=== PATIENT | male | born 1980 | race American Indian/Alaskan Native ===

== ENCOUNTER 2018-07-26 17:10 | Emergency (ER) | payer OTHER ==
[2018-07-26 17:24] VITALS: BP 110/73; PULSE 85; RESP 18; TEMP 98.8; O2SAT 98
[2018-07-26] MEDS ORDERED: Lidocaine 1% Inj (20ml) INFIL STA (17:48)
[2018-07-26] MEDS ORDERED: Bacitracin 500 Units/gm Oint Foilpak UD TOP STA (17:48)
--- NOTE | 2018-07-26 17:51 | C.PDOC ---
History Of Present Illness 38 year old male presents to the ED for an evaluation of earring stuck to left ear lobe. Denies any sign of infection, fever, chills or any other symptoms. Time Seen by Provider: 07/26/18 17:46 Chief Complaint (Nursing): ENT Problem History Per: Patient History/Exam Limitations: no limitations Onset/Duration Of Symptoms: Days Current Symptoms Are (Timing): Still Present Location Of Injury: Left: Face (earring embedded in left ear lobe) Quality Of Symptoms: Painful Past Medical History Reviewed: Historical Data, Nursing Documentation, Vital Signs Vital Signs: Last Vital Signs Temp 98.8 F 07/26/18 17:21 Pulse 85 07/26/18 17:21 Resp 18 07/26/18 17:21 BP 110/73 07/26/18 17:21 Pulse Ox 98 07/26/18 17:21 - Medical History PMH: No Chronic Diseases Surgical History: No Surg Hx - [facility] Procedures OTHER SKIN & SUBQ I D (02/28/14) Family History: States: No Known Family Hx - Social History Hx Tobacco Use: No Hx Alcohol Use: No Hx Substance Use: No - Immunization History Hx Tetanus Toxoid Vaccination: No Hx Influenza Vaccination: No Hx Pneumococcal Vaccination: No Review Of Systems Except As Marked, All Systems Reviewed And Found Negative. Constitutional: Negative for: Fever, Chills ENT: Positive for: Ear Pain (left) Physical Exam - Physical Exam Appears: Non-toxic Skin: Warm, Dry Head: Normacephalic Eye(s): bilateral: Normal Inspection Ear(s): Left: Other (earring embedded in the ear lobe), Right: Normal Nose: Normal Oral Mucosa: Moist Neck: Normal ROM, Supple Chest: Symmetrical Extremity: Normal ROM Neurological/Psych: Oriented x3, Normal Speech Gait: Steady ED Course And Treatment O2 Sat by Pulse Oximetry: 98 (RA) Pulse Ox Interpretation: Normal Medical Decision Making Medical Decision Making: Procedure: foreign body removal by me Local anesthesia achieved with 1% lidocaine. Wound irrigated with NS and explored. Foreign body removed by taking backing of earing off without difficulty. Disposition Counseled Patient/Family Regarding: Diagnosis, Need For Followup, Rx Given - Disposition Referrals: Blanco Brandon DO [Staff Provider] - Disposition: HOME/ ROUTINE Disposition Time: 17:49 Condition: STABLE Additional Instructions: FOLLOW UP WITH PMD IN 1-2 DAYS FOR RE-EVALUATION. IF WOUND REDNESS, SWELLING OR DISCHARGE DEVELOP RETURN TO ED. Prescriptions: Bacitracin 1 apful EXT TID #30 g Instructions: Foreign Body in Skin Forms: [facility] (Tanzanian) - Clinical Impression Clinical Impression: Foreign body in skin - PA / CONSERVATION OF RESOURCES COMMISSIONER / Resident Statement MD/DO has reviewed & agrees with the documentation as recorded. - Scribe Statement The provider has reviewed the documentation as recorded by the Scribe Thalia Rdoriguez All medical record entries made by the Raulitoibeliceo were at my direction and personally dictated by me. I have reviewed the chart and agree that the record accurately reflects my personal performance of the history, physical exam, medical decision making, and the department course for this patient. I have also personally directed, reviewed, and agree with the discharge instructions and disposition.
[2018-07-26] MEDS ORDERED: Bacitracin 500 Units/gm Oint Foilpak UD ONE (17:55)
[2018-07-26] MEDS ORDERED: Lidocaine Hydrochloride 10 ML INJ ONE (17:55)
== END 2018-07-26 18:04 | disposition home or self-care (01) ==
LOC: C.ER 17:10
DX: S00.452A Superficial foreign body of left ear, initial encounter (principal); W45.8XXA Other foreign body or object entering through skin, initial encounter

== ENCOUNTER 2018-09-09 17:41 | Emergency (ER) | payer OTHER ==
[2018-09-09] MEDS ORDERED: Sodium Chloride 0.9% 1,000 ML IV ONE ×2 (18:53)
--- NOTE | 2018-09-09 19:27 | C.PDOC ---
History Of Present Illness 38 year old male presents to the ER with a complaint of abdominal pain that began 3 days ago after eating chicken associated with nausea and diarrhea. Denies vomiting. Chief Complaint (Nursing): Abdominal Pain History Per: Patient History/Exam Limitations: no limitations Onset/Duration Of Symptoms: Days (3) Current Symptoms Are (Timing): Still Present Location Of Pain/Discomfort: Diffuse Radiation Of Pain To:: None Quality Of Discomfort: Unable To Describe Associated Symptoms: Nausea, Diarrhea. denies: Vomiting Exacerbating Factors: None Alleviating Factors: None Recent travel outside of the [place]: No Past Medical History Reviewed: Historical Data, Nursing Documentation, Vital Signs Vital Signs: Last Vital Signs Temp 98.5 F 09/09/18 17:59 Pulse 108 H 09/09/18 17:59 Resp 18 09/09/18 17:59 BP 104/71 09/09/18 17:59 Pulse Ox 99 09/09/18 17:59 - [facility] Procedures OTHER SKIN & SUBQ I D (02/28/14) Family History: States: Unknown Family Hx - Social History Hx Tobacco Use: No Hx Alcohol Use: Yes Hx Substance Use: No - Immunization History Hx Tetanus Toxoid Vaccination: No Hx Influenza Vaccination: No Hx Pneumococcal Vaccination: No Review Of Systems Constitutional: Negative for: Fever, Chills Cardiovascular: Negative for: Chest Pain, Palpitations Respiratory: Negative for: Cough, Shortness of Breath Gastrointestinal: Positive for: Nausea, Abdominal Pain, Diarrhea. Negative for: Vomiting Genitourinary: Negative for: Dysuria, Hematuria Neurological: Negative for: Weakness, Numbness Physical Exam - Physical Exam Appears: Non-toxic Skin: Normal Color, Warm, Dry Head: Atraumatic, Normacephalic Eye(s): bilateral: Normal Inspection Oral Mucosa: Moist Neck: Normal, Supple Chest: Symmetrical, No Tenderness Cardiovascular: Rhythm Regular Respiratory: Normal Breath Sounds, No Rales, No Rhonchi, No Wheezing Gastrointestinal/Abdominal: Soft, No Tenderness Back: No CVA Tenderness Neurological/Psych: Oriented x3, Normal Speech ED Course And Treatment - Laboratory Results Result Diagrams: 09/09/18 19:27 09/09/18 19:27 O2 Sat by Pulse Oximetry: 99 (Room air) Pulse Ox Interpretation: Normal Progress Note: Blood work and urinalysis ordered. Bentyl and IV fluids administered. Disposition Counseled Patient/Family Regarding: Diagnosis - Disposition Referrals: [facility] [Outside] Disposition: HOME/ ROUTINE Disposition Time: 20:28 Condition: STABLE Prescriptions: Dicyclomine [Bentyl] 10 mg PO TID #14 cap Instructions: Viral Gastroenteritis, Adult (DC), Diarrhea in Adolescents and Adults Forms: [facility] (Chilean) - POA Present On Arrival: None - Clinical Impression Clinical Impression: Abdominal pain, Diarrhea, Gastroenteritis - Scribe Statement The provider has reviewed the documentation as recorded by the Scribeliceo Gates All medical record entries made by the Raulitoibeliceo were at my direction and personally dictated by me. I have reviewed the chart and agree that the record accurately reflects my personal performance of the history, physical exam, medical decision making, and the department course for this patient. I have also personally directed, reviewed, and agree with the discharge instructions and disposition.
[2018-09-09] MEDS ORDERED: Sodium Chloride 0.9% 2,000 ML ONE (19:32)
[2018-09-09 19:33] LABS: BASO % 0.4 % (0.0-2.0); EOS # 0.1 K/uL (0.0-0.7); EOS % 1.7 % (0.0-4.0); HEMOGLOBIN 14.3 g/dL (12.0-18.0); LYMPH # 1.7 K/uL (1.0-4.3); LYMPH % 31.9 % (20.0-40.0); MEAN CORPUSCULAR HEMOGLOBIN 25.5 pg (27.0-31.0); MEAN CORPUSCULAR HGB CONC 33.6 g/dL (33.0-37.0); MEAN PLATELET VOLUME 6.7 fL (7.2-11.7); MONO # 0.5 K/uL (0.0-0.8); MONO % 9.8 % (0.0-10.0); NEUT # 2.9 K/uL (1.8-7.0); NEUT % 56.2 % (50.0-75.0); NRBC % 0.1 % (0.0-2.0); RBC 5.6 Mil/uL (4.40-5.90); WHITE BLOOD COUNT 5.2 K/uL (4.8-10.8)
[2018-09-09 19:49] LABS: ALB/GLOB RATIO 1.5 (1.0-2.1); ALBUMIN 4.2 g/dL (3.5-5.0); ALT/SGPT 21 U/L (21-72); AST/SGOT 20 U/L (17-59); BLOOD UREA NITROGEN 18 mg/dL (9-20); CALCIUM 8.7 mg/dl (8.6-10.4); GFR NON-AFRICAN AMERICAN > 60; LIPASE 71 U/L (23-300)
[2018-09-09 20:00] LABS: URINE BACTERIA RARE (<OCC); URINE BILIRUBIN NEGATIVE (NEGATIVE); URINE BLOOD NEGATIVE (NEGATIVE); URINE CLARITY Clear (Clear); URINE COLOR Yellow (YELLOW); URINE GLUCOSE (UA) NORMAL (Normal); URINE LEUKOCYTE ESTERASE NEG Leu/uL (Negative); URINE PROTEIN NEGATIVE (NEGATIVE)
[2018-09-09 21:10] VITALS: BP 117/78; PULSE 70; RESP 20; TEMP 99; O2SAT 70
== END 2018-09-09 21:02 | disposition home or self-care (01) ==
LOC: C.ER 17:41
DX: K52.9 Noninfective gastroenteritis and colitis, unspecified (principal)
CPT/HCPCS: 80053; 81001; 83690; 85025; 96360; 96372; 99284; J0500; J7030

== ENCOUNTER 2019-02-03 15:40 | Emergency (ER) | payer OTHER ==
[2019-02-03 15:43] VITALS: BMI 25.8
[2019-02-03 15:44] VITALS: BP 95/62; PULSE 91; RESP 18; TEMP 98.4; O2SAT 97
--- NOTE | 2019-02-03 16:05 | C.PDOC ---
History Of Present Illness 38 y/o male presents to ED with right lower eyelid swelling x1 week. He reports of minor pain, associated with swelling, no drainage or visual changes. Also reports history of 2 chalazions in the past which he has surgically removed. Patient is requesting ophthalmology referral. Patient has no other complaints at this time. Time Seen by Provider: 02/03/19 15:47 Chief Complaint (Nursing): Eye Problem History Per: Patient History/Exam Limitations: no limitations Onset/Duration Of Symptoms: Days Current Symptoms Are (Timing): Still Present Past Medical History Reviewed: Historical Data, Nursing Documentation, Vital Signs Vital Signs: Last Vital Signs Temp 98.4 F 02/03/19 15:43 Pulse 91 H 02/03/19 15:43 Resp 18 02/03/19 15:43 BP 95/62 L 02/03/19 15:43 Pulse Ox 97 02/03/19 15:43 - [facility] Procedures OTHER SKIN & SUBQ I D (02/28/14) Family History: States: No Known Family Hx - Social History Hx Tobacco Use: No Hx Alcohol Use: Yes Hx Substance Use: No - Immunization History Hx Tetanus Toxoid Vaccination: No Hx Influenza Vaccination: No Hx Pneumococcal Vaccination: No Review Of Systems Except As Marked, All Systems Reviewed And Found Negative. Constitutional: Negative for: Fever, Chills Eyes: Positive for: Other (right lower eyelid swelling with minor pain). Negative for: Vision Change Skin: Negative for: Rash Physical Exam - Physical Exam Appears: Non-toxic, No Acute Distress Skin: Warm, Dry Head: Normacephalic Eye(s): right: Other (lower eyelid has mild swelling and mildly tender to palpation; on eyelid eversion, there is mild erythema noted), left: Normal I nspection Oral Mucosa: Moist Extremity: Bilateral: Normal Color And Temperature Neurological/Psych: Oriented x3, Normal Speech Gait: Steady ED Course And Treatment O2 Sat by Pulse Oximetry: 97 (RA) Pulse Ox Interpretation: Normal Progress Note: Patient referred to press clipper. Disposition - Disposition Referrals: Lencho Lester MD [Staff Provider] - Disposition: HOME/ ROUTINE Disposition Time: 16:04 Condition: STABLE Additional Instructions: Follow up with Dr. Lester (ophthalmology). This is your referral Forms: [facility] (Kittitian) - POA Present On Arrival: None - Clinical Impression Clinical Impression: Swelling of right lower eyelid - PA / SOURCING ASSISTANT / Resident Statement MD/DO has reviewed & agrees with the documentation as recorded. - Scribe Statement The provider has reviewed the documentation as recorded by the Scribe Kathie Vasquez All medical record entries made by the Raulitoibeliceo were at my direction and personally dictated by me. I have reviewed the chart and agree that the record accurately reflects my personal performance of the history, physical exam, medical decision making, and the department course for this patient. I have also personally directed, reviewed, and agree with the discharge instructions and disposition.
== END 2019-02-03 16:58 | disposition home or self-care (01) ==
LOC: C.ER 15:40
DX: H02.842 Edema of right lower eyelid (principal)